=== PATIENT | male | born 1965 | race Caucasian/White ===

== ENCOUNTER 2018-12-27 23:33 | Emergency (ER) | payer OTHER ==
[~2018-12-27] VITALS: Ht 175.3 cm; Wt 96.6 kg
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
[2018-12-28] MEDS ORDERED: NAPR-1071 PO (00:08)
[2018-12-28 00:19] VITALS: BP 177/99
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
== END 2018-12-28 00:19 | disposition home or self-care (01) ==
LOC: ER FS 23:35
DX: S46.812A Strain of other muscles, fascia and tendons at shoulder and upper arm level, left arm, initial encounter (principal); S40.012A Contusion of left shoulder, initial encounter; Z88.5 Allergy status to narcotic agent; V49.49XA Driver injured in collision with other motor vehicles in traffic accident, initial encounter
CPT/HCPCS: 73030

== ENCOUNTER 2019-03-31 18:04 | Emergency (ER) | payer OTHER ==
[~2019-03-31] VITALS: Ht 175.2 cm; Wt 96.8 kg
[~2019-03-31 18:04] MED LIST: NAPR-1071 PO
--- NOTE | 2019-03-31 18:45 | NUR ---
Report to Dr Atkinson. No O2 placed or R.T. tx began until physician examines and determines need for. Resp are even and unlabored. SaO2 97-98% Rm Air.
--- NOTE | 2019-03-31 19:00 | NUR ---
Report to Bernadette KANG.
[2019-03-31] MEDS ORDERED: RT-ALBUTEROL SULF 2.5 MG/3 ML PRE-MIX VIAL INH STA (19:07)
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
[2019-03-31] MEDS ORDERED: BENZ100C18 PO (19:41)
[2019-03-31] MEDS ORDERED: RT-ALBUINH IH (19:41)
[2019-03-31 20:06] VITALS: BP 160/94
== END 2019-03-31 20:07 | disposition home or self-care (01) ==
LOC: EDUNIT# 18:04 → ER FS 18:06
DX: T59.811A Toxic effect of smoke, accidental (unintentional), initial encounter (principal); J70.5 Respiratory conditions due to smoke inhalation; J68.0 Bronchitis and pneumonitis due to chemicals, gases, fumes and vapors; F17.290 Nicotine dependence, other tobacco product, uncomplicated; Z88.5 Allergy status to narcotic agent